=== PATIENT | female | born 1945 | race Caucasian/White ===

== ENCOUNTER → 2017-02-28 | Outpatient (CLI) | payer BC, OTHER ==
[~2017-02-28] MED LIST: "\\\"STATIN\\\""; AMIODARONE HCL200 MG PO; ASPIR 8181 M1 PO; ASPIRIN E.C.81 M1 PO; ASPIRIN325 MG PO; BENEMID500 MG PO; COZAAR100 MG PO; CYMBALTA30 MG PO; DIOVAN160 MG PO; DIOVAN320 MG PO; DOCUSATE SODIU100 MG PO; DULOXETINE HCL60 MG PO; ELIQUIS5 MG PO; FOLBIC RF TABL1 EACH PO; FOLIC ACID1 MG PO; Folic Acid PO; GINKGO BILOBA120 M1 PO; GINKGO BILOBA40 MG PO; Ginkgo Biloba PO; KRILL OIL 3001 EACH PO; LIPITOR40 MG PO; LOPRESSOR25 MG PO; LOSARTAN POTAS100 MG PO; METOPROLOL SUCC25 MG PO; METOPROLOL TART25 MG PO; MUCINEX600 MG PO; NEXIUM20 MG PO; NEXIUM40 MG PO; NORMODYNE,TRAND50 MG PO; NORVASC5 MG PO; Normodyne,Trandate PO; OMEGA 3-6-91200 MG PO; PERCOCET 5/31 TABLET PO; PRAVACHOL20 MG PO; PROBENECID500 MG PO; PROBIOTIC1 EAC1 PO; THERAGRAN1 TABLET PO; TYLENOL EXTRA500 MG PO; VITAMIN D32000 UNIT PO; XARELTO10 MG PO; XARELTO20 MG PO; ZANTAC300 MG PO; ZIAC 10/6.251 TABLET PO
== END | disposition home or self-care (01) ==
LOC: RES 10:08
DX: J98.4 Other disorders of lung (principal); R94.2 Abnormal results of pulmonary function studies
CPT/HCPCS: 94060; 94726; 94729

== ENCOUNTER → 2017-08-18 | Outpatient (CLI) | payer BC, OTHER ==
[~2017-08-18] MED LIST changes: +B-121000 MC2 PO; +FLOVENT 11120 INHALA IH; +METHYLPREDNISOLO4 MG PO; +PAIN & FEVER325 MG PO; +ULTRAM50 MG PO; +[UNRECOGNIZED DRUG - OTHER] PO
== END | disposition home or self-care (01) ==
DX: R13.12 Dysphagia, oropharyngeal phase (principal); J38.01 Paralysis of vocal cords and larynx, unilateral; K21.9 Gastro-esophageal reflux disease without esophagitis
CPT/HCPCS: 92611 GN